=== PATIENT | male | born 1955 | race Two or more races ===

== ENCOUNTER 2019-09-16 14:09 | Outpatient (CLI) | payer MEDICAID ==
[~2019-09-16] VITALS: Ht 165.1 cm; Wt 85.7 kg
[2019-09-16 16:12] VITALS: BP 114/66
[2019-09-16] MEDS ORDERED: AMIODARONE HCL200 MG ORAL (16:12)
--- NOTE | 2019-09-16 20:15 | Consultation ---
DATE OF CONSULTATION: 09/16/2019 CHIEF COMPLAINT: Referral for screening colonoscopy. PAST MEDICAL HISTORY: 1. Hypertension. 2. . 3. Sleep apnea. PAST SURGICAL HISTORY: None. MEDICATIONS: Please see medication reconciliation list. FAMILY HISTORY: No family history of GI malignancies. SOCIAL HISTORY: The patient occasionally drinks alcohol. Denies any tobacco or IV drug abuse. ALLERGIES: No known drug allergies. REVIEW OF SYSTEMS: A 10-point review of systems was performed and pertinent positives in HPI. PHYSICAL EXAMINATION: GENERAL: The patient is well-developed male, in no acute distress. VITAL SIGNS: Temperature 98, blood pressure 114/66, pulse 60, respirations 20. HEENT: Normocephalic and atraumatic. Sclerae are anicteric. NECK: Supple. No evidence of obvious lymphadenopathy. CARDIOVASCULAR: Regular rate and rhythm. Plus S1 and S2. LUNGS: Decreased breath sounds bilaterally based on the supine exam. ABDOMEN: Soft and nontender. No rebound. No guarding. No peritoneal sign. EXTREMITIES: No cyanosis, no clubbing, no edema. The patient had some evidence of ulceration on his hands, not sure exactly why. ASSESSMENT AND PLAN: The patient is a 63-year-old male referred for screening colonoscopy. The patient was given instruction for colonoscopy. The prep was explained to him. The risks and benefits of procedure was explained to him, he agreed. Plan to get authorization for colonoscopy. Mukesh Benítez M.D. DR: Francis JOB#: [id number] CC:
== END 2019-09-16 16:09 | disposition home or self-care (01) ==
LOC: PAN 14:09
DX: Z12.11 Encounter for screening for malignant neoplasm of colon (principal); I10 Essential (primary) hypertension; G47.30 Sleep apnea, unspecified
CPT/HCPCS: G0463